=== PATIENT | male | born 1990 | race Caucasian/White ===

== ENCOUNTER 2017-05-18 05:35 | Emergency (ER) | payer SELFPAY ==
[~2017-05-18] VITALS: Ht 172.7 cm; Wt 68.0 kg
[2017-05-18 05:36] VITALS: BP 175/97; PULSE 81; RESP 18; TEMP 98.3; O2SAT 99
[2017-05-18] MEDS ORDERED: AUGM875T3 PO (05:50)
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
[2017-05-18] MEDS ORDERED: TETANUS/DIPHTHERIA TOXOID ADULT 0.5 ML VIAL IM ONE (06:00)
[2017-05-18] MEDS ORDERED: AMOXICILLIN/CLAVULANATE K 875 MG TAB PO ONE (06:00)
== END 2017-05-18 06:12 | disposition home or self-care (01) ==
LOC: NEPD 05:35
DX: S50.872A Other superficial bite of left forearm, initial encounter (principal); Y04.1XXA Assault by human bite, initial encounter
CPT/HCPCS: 90471; 90714; 96372